=== PATIENT | female | born 1970 | race Hispanic/Latino ===

== ENCOUNTER 2021-05-29 00:47 | Emergency (ER) | payer SELFPAY ==
[2021-05-29] MEDS ORDERED: TETANUS & DIPHTHERIA TOX,ADULT 0.5 ML VIAL ONE (02:03)
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
[2021-05-29 04:06] VITALS: BP 132/101; TEMP 98.8; O2SAT 96
[2021-05-29] MEDS ORDERED: IBUPROFEN 400 MG TAB ONE (04:14)
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
== END 2021-05-29 04:00 | disposition home or self-care (01) ==
LOC: ER 00:47
DX: S00.83XA Contusion of other part of head, initial encounter (principal); Y04.8XXA Assault by other bodily force, initial encounter; Y92.89 Other specified places as the place of occurrence of the external cause; Z23 Encounter for immunization
CPT/HCPCS: 70450; 70498; 82565; 90471; 90714; 99284; G0390; Q9967